=== PATIENT | male | born 1995 | race Caucasian/White ===

== ENCOUNTER 2017-03-29 13:04 | Emergency (ER) | payer OTHER ==
[~2017-03-29] VITALS: Ht 160 cm; Wt 80.0 kg
[2017-03-29 13:10] VITALS: Ht 160 cm; Wt 80.0 kg
--- NOTE | 2017-03-29 14:35 | ERA ---
ER Documentation Chief Complaint Date/Time DATE: 03/29/17 TIME: 14:31 Chief Complaint WANTS LEFT HAND REGLUED AGAIN, SEEN IN ANOTHER ER HPI 22-year-old male presents 30 hours status post laceration to the left thenar eminence. Patient was seen at an emergency department in [place] yesterday. Laceration was sustained by abuse of metal all wrestling with his brother.Received a tetanus vaccination yesterday. No antibiotics were given. Dermabond was applied. States that the Dermabond is now coming loose. Denies any numbness, tingling, loss of motion, discharge, fever, or increased pain. Has not taken any medications. Patient has no other complaints and describes no other associated manifestations. Nursing notes have been reviewed and are consistent with history given. ROS All systems reviewed and are negative except as per history of present illness. Physical Exam Vitals Vital Signs Date Time Temp Pulse Resp B/P Pulse Ox O2 Delivery O2 Flow Rate FiO2 03/29/17 13:10 98.1 78 18 131/78 99 Physical Exam Const: Well-appearing 22-year-old male in no acute distress. Head: Atraumatic Eyes: Normal Conjunctiva ENT: Normal External Ears, Nose and Mouth. Neck: Full range of motion..~ No meningismus. Resp: Clear to auscultation bilaterally Cardio: Regular rate and rhythm, no murmurs Abd: Soft, non tender, non distended. Normal bowel sounds Skin: No petechiae or rashes Back: No midline or flank tenderness Ext: Well-appearing 78 cm horizontal shallow laceration on the left thenar eminence. No anatomical snuffbox tendernessNo cyanosis, or edema Neur: Awake and alert Psych: Normal Mood and Affect Procedures/MDM 22-year-old male presenting with a chief complaint of laceration. Was seen in the ED 1 day ago. Tetanus status up-to-date. States that his Dermabond is coming loose. Dermabond was reapplied. Steri-Strips were also applied to help keep the wound together and area of high mobility. Sutures are on obtainable at this time due to the duration since laceration. There is adequate approximation. Neurovascularly intact before and after. I have spoke with the patient regarding their condition and future management. They have verbally responded that they understand their status and treatment plan. The patients vitals are stable, and their current condition is appropriate for discharge. The patient will be given discharge instructions with return precautions. Departure Diagnosis: Primary Impression: Laceration Condition: Stable Additional Instructions: Follow up with your PCP within the next 1-3 days for a more thorough evaluation and a possible referral to a specialist. Return the the emergency department immediately if symptoms worsen or change. If you have any questions regarding medications, ask your pharmacist or us before you leave. If any adverse reactions occur while taking your medications, discontinue the treatment and return to the emergency department immediately. Take your medications as directed, and complete the entire course of treatment. ANI COLIN PA-C Mar 29, 2017 14:35
== END 2017-03-29 16:48 | disposition home or self-care (01) ==
LOC: FTE 13:04
DX: S61.412D Laceration without foreign body of left hand, subsequent encounter (principal); W26.8XXD Contact with other sharp object(s), not elsewhere classified, subsequent encounter
CPT/HCPCS: 12001; Z7502